=== PATIENT | female | born 1960 | race Caucasian/White ===

== ENCOUNTER 2023-09-01 14:44 | Emergency (ER) | payer MEDICARE ==
[2023-09-01] VITALS (14 sets, daily range): BP systolic 104–123; BP diastolic 57–95
[~2023-09-01] VITALS: Ht 152.4 cm; Wt 114.1 kg
[~2023-09-01 14:44] MED LIST: ALLOPURINOL300 MG PO; ESCITALOPRAM OX20 MG PO; EZETIMIBE10 MG PO; JARDIANCE25 MG PO; LANTUS SOL100 UNIT/M SC; LOSARTAN POTASS50 MG PO; MOUNJARO5 MG IM; TOPROL XL25 MG PO; TRIAMT/HCTZ1 TA1 PO
[2023-09-01] MEDS ORDERED: LOPRESSOR 550 MG/TAB PO (15:36)
[2023-09-01] MEDS ORDERED: LOSARTAN POTASS25 MG PO (15:37)
[2023-09-01] MEDS ORDERED: VITAMIN D-32000 UNI1 (15:38)
[2023-09-01] MEDS ORDERED: GABAPENTIN300 M2 (15:38)
[2023-09-01] MEDS ORDERED: MOUNJARO12.5 MG (15:40)
[2023-09-01] MEDS ORDERED: LANTUS100 UNIT (15:40)
[2023-09-01 15:46] LABS: BASO% 0.3 % (0-3); EOS% 2.6 % (0-8); HEMOGLOBIN 12.7 g/dl (12.0-16.0); MEAN CELL VOLUME 83.5 fL CALC (80.0-100.0); MEAN CORPUSCULAR HGB 26.5 pG CALC (26.0-32.0); MEAN CORPUSCULAR HGB CONC 31.8 g/dL CAL (32.0-36.0); MONO% 3.2 % (2-13); NEUT# 10.26 thou/uL (2.00-7.15); NEUT% 76.9 % (42-76); RED BLOOD COUNT 4.79 mill/uL (4.20-5.60)
[2023-09-01 16:05] LABS: ALBUMIN 4.4 g/dL (3.2-5.0); ALKALINE PHOSPHATASE 101 u/l (38-126); BILIRUBIN, TOTAL 0.6 mg/dL (0.02-1.3); BUN 27 mg/dL (8-23); BUN/CREATININE RATIO 28 (12-20 (CALC)); CARBON DIOXIDE 23 mmol/l (22-30); CHLORIDE 110 mmol/l (95-108); GFR FOR AFR.AMER. > 60 ML/MIN (>=60 (CALC)); GFR OTHER RACES 56 ML/MIN (>=60 (CALC)); SGOT/AST 29 u/l (9-36); SODIUM 142 mmol/l (137-146); TOTAL PROTEIN 7.1 g/dL (6.3-8.2)
[2023-09-01 16:06] LABS: ANION GAP 12 (6-22 (CALC)); POTASSIUM 3.3 mmol/l (3.5-5.1)
[2023-09-01 16:36] LABS: TSH, 3RD GENERATION 1.67 uIU/mL (0.47 - 4.68)
[2023-09-01 17:10] LABS: URINE BILIRUBIN - DIPSTICK Negative (NEGATIVE); URINE BLOOD DIPSTICK Negative (NEGATIVE); URINE GLUCOSE - DIPSTICK 500 mg/dL (NEGATIVE); URINE KETONE Negative (NEGATIVE); URINE LEUK ESTERASE Negative (NEGATIVE); URINE NITRITE - DIPSTICK Negative (Negative); URINE PROTEIN - DIPSTICK Negative (NEG-TRACE); URINE UROBILINOGEN - DIPSTICK 0.2 E.U./dL (0.2)
[2023-09-01 17:11] LABS: URINE COLOR Yellow
[2023-09-01] MEDS ORDERED: POTASSIUM CHLORIDE 20 MEQ/TAB PO ONE (18:10)
[2023-09-01] MEDS ORDERED: TOPROL XL100 MG PO (18:14)
== END 2023-09-01 19:17 | disposition home or self-care (01) ==
LOC: ED 14:44
PROVIDERS: Family Medicine
DX: R00.2 Palpitations (principal); R00.0 Tachycardia, unspecified; I10 Essential (primary) hypertension; E11.9 Type 2 diabetes mellitus without complications; I48.91 Unspecified atrial fibrillation; I48.92 Unspecified atrial flutter; Z79.4 Long term (current) use of insulin; Z20.822 Contact with and (suspected) exposure to COVID-19

== ENCOUNTER 2024-03-20 11:11 | Emergency (ER) | payer MEDICARE ==
[2024-03-20] VITALS (13 sets, daily range): BP systolic 75–134; BP diastolic 27–79
[~2024-03-20] VITALS: Ht 152.4 cm; Wt 113.3 kg
[~2024-03-20 11:11] MED LIST changes: +CIPROFLOXACN500 MG PO; +FLECAINIDE100 MG PO; +GABAPENTIN300 M2; +LANTUS100 UNIT; +LOPRESSOR 550 MG/TAB PO; +LORTAB 7.57.5 MG PO; +LOSARTAN POTASS25 MG PO; +METRONIDAZOLE500 MG PO; +MOUNJARO12.5 MG; +TAMSULOSIN0.4 MG PO; +TOPROL XL100 MG PO; +TORADOL PO; +VITAMIN D-32000 UNI1; +ZOFRAN4 MG/TAB PO
[2024-03-20] MEDS ORDERED: ONDANSETRON HCl 4 MG/2 ML SDV IV ONE ×2 (11:25→12:55)
[2024-03-20] MEDS ORDERED: SODIUM CHLORIDE 0.9% 1,000 ML IV ONE ×2 (11:25→12:25)
[2024-03-20 11:38] LABS: BASO% 0.2 % (0-3); EOS% 0.6 % (0-8); HEMATOCRIT 41.3 % (37.0-47.0); IMMATURE GRANULOCYTES 0.8 % (0.0-5.0); LYMPH% 9.1 % (15-41); MEAN CELL VOLUME 86.4 fL CALC (80.0-100.0); MEAN CORPUSCULAR HGB 27.2 pG CALC (26.0-32.0); MEAN CORPUSCULAR HGB CONC 31.5 g/dL CAL (32.0-36.0); MONO% 4.7 % (2-13); NEUT# 17.31 thou/uL (2.00-7.15); NEUT% 84.6 % (42-76); RED BLOOD COUNT 4.78 mill/uL (4.20-5.60); RED CELL DISTRI WIDTH 14.6 % (11.5-15.5)
[2024-03-20 11:49] LABS: ALBUMIN 4.5 g/dL (3.2-5.0); POTASSIUM 3.8 mmol/l (3.5-5.1); TOTAL PROTEIN 7.9 g/dL (6.3-8.2)
[2024-03-20 11:53] LABS: BILIRUBIN, TOTAL 1.6 mg/dL (0.02-1.3)
[2024-03-20] MEDS ORDERED: Levofloxacin 750 mg Premix 150 ML IV ONE (12:25)
[2024-03-20 12:39] LABS: URINE BILIRUBIN - DIPSTICK Negative (NEGATIVE); URINE BLOOD DIPSTICK Trace-intact (NEGATIVE); URINE GLUCOSE - DIPSTICK Negative (NEGATIVE); URINE KETONE Negative (NEGATIVE); URINE LEUK ESTERASE Trace (NEGATIVE); URINE NITRITE - DIPSTICK Negative (Negative); URINE PH 5.5 (4.5-8.0); URINE PROTEIN - DIPSTICK Trace mg/dL (NEG-TRACE); URINE SPECIFIC GRAVITY 1.025; URINE UROBILINOGEN - DIPSTICK 0.2 E.U./dL (0.2)
[2024-03-20 12:40] LABS: URINE COLOR Yellow
[2024-03-20] MEDS ORDERED: MORPHINE SULFATE 4 MG/ML VIAL IV ONE ×2 (12:55→14:20)
[2024-03-20] MEDS ORDERED: METRONIDAZOLE500 MG PO (14:23)
[2024-03-20] MEDS ORDERED: CIPROFLOXACN500 MG PO (14:23)
[2024-03-20] MEDS ORDERED: ZOFRAN4 MG/TAB PO (14:24)
== END 2024-03-20 16:01 | disposition home or self-care (01) ==
LOC: ED 11:11
PROVIDERS: Family Medicine
DX: K57.32 Diverticulitis of large intestine without perforation or abscess without bleeding (principal); I10 Essential (primary) hypertension; E11.9 Type 2 diabetes mellitus without complications; I48.91 Unspecified atrial fibrillation; Z79.01 Long term (current) use of anticoagulants; Z79.4 Long term (current) use of insulin; Z79.85 Long-term (current) use of injectable non-insulin antidiabetic drugs